=== PATIENT | male | born 1995 | race Two or more races ===

== ENCOUNTER 2023-10-10 18:59 | Emergency (ER) | payer MEDICAID ==
[~2023-10-10] VITALS: Ht 175.3 cm; Wt 81.6 kg
[2023-10-10 19:15] VITALS: TEMP 98.7
[2023-10-10 20:53] VITALS: BP 142/89; O2SAT 99
== END 2023-10-10 20:54 | disposition home or self-care (01) ==
LOC: ER 19:19
DX: S13.4XXA Sprain of ligaments of cervical spine, initial encounter (principal); M25.551 Pain in right hip; V89.2XXA Person injured in unspecified motor-vehicle accident, traffic, initial encounter; Y93.89 Activity, other specified; Y92.89 Other specified places as the place of occurrence of the external cause; Y99.8 Other external cause status
CPT/HCPCS: 72125-TC; 73502